=== PATIENT | female | born 1950 | race Caucasian/White ===

== ENCOUNTER → 2016-11-26 | Outpatient (CLI) | payer MEDICARE, OTHER ==
[~2016-11-26] VITALS: Ht 165.1 cm; Wt 59.9 kg
[~2016-11-26] MED LIST: COLA100C2 OR; CYCL10TA3 PO; DOCU10ELUD PO; EFFE150C PO; LR 1,000 ML IV SCH; PERC5TAB8 OR; PROPOFOL 200 MG/20 ML VIAL As Ordered ONE; SIMV40TA2 PO; TYLE325T5 PO; TYLENOL #3; VOLT75TA PR; [UNRECOGNIZED DRUG - REMARK] PO; ambien OR
[2016-11-26 09:40] VITALS: BP 132/71
--- NOTE | 2016-11-26 09:50 | ROOR ---
Patient Name: Reina Jerez Procedure Date: 11/26/2016 8:19 AM Date of : 1950 Age: 66 Room: [facility] Gender: Female Note Status: Finalized Procedure: Colonoscopy Indications: Screening for colorectal malignant neoplasm, This is the patient's first colonoscopy Providers: Kirt Abraham MD Referring MD: Elvia Arriaza MD Requesting Provider: Medicines: Monitored Anesthesia Care Complications: No immediate complications. Procedure: Pre-Anesthesia Assessment: - Prior to the procedure, a History and Physical was performed, and patient medications and allergies were reviewed. The patient is competent. The risks and benefits of the procedure and the sedation options and risks were discussed with the patient. All questions were answered and informed consent was obtained. Patient identification and proposed procedure were verified by the physician, the nurse and the anesthesiologist in the procedure room. Mental Status Examination: alert and oriented. Airway Examination: normal oropharyngeal airway and neck mobility. CV Examination: regular rate and rhythm. Prophylactic Antibiotics: The patient does not require prophylactic antibiotics. Prior Anticoagulants: The patient has taken no previous anticoagulant or antiplatelet agents. ASA Grade Assessment: II - A patient with mild systemic disease. After reviewing the risks and benefits, the patient was deemed in satisfactory condition to undergo the procedure. The anesthesia plan was to use monitored anesthesia care (MAC). Immediately prior to administration of medications, the patient was re-assessed for adequacy to receive sedatives. The heart rate, respiratory rate, oxygen saturations, blood pressure, adequacy of pulmonary ventilation, and response to care were monitored throughout the procedure. The physical status of the patient was re-assessed after the procedure. The was introduced through the anus and advanced to the cecum, identified by appendiceal orifice and ileocecal valve. The colonoscopy was technically difficult and complex due to significant looping. The patient tolerated the procedure well. The quality of the bowel preparation was excellent. Findings: The perianal and digital rectal examinations were normal. Multiple medium-mouthed diverticula were found in the sigmoid colon. A few medium-mouthed diverticula were found in the descending colon, in the transverse colon and in the ascending colon. Two sessile polyps were found in the cecum. The polyps were 4 to 10 mm in size. These polyps were removed with a hot snare. Resection and retrieval were complete. Two sessile polyps were found in the distal ascending colon. The polyps were 4 to 8 mm in size. Estimated blood loss: none. These polyps were removed with a hot snare. Resection and retrieval were complete. Three sessile polyps were found in the transverse colon. The polyps were 4 to 7 mm in size. These polyps were removed with a hot snare. Resection and retrieval were complete. Impression: - Diverticulosis in the sigmoid colon. - Diverticulosis in the descending colon, in the transverse colon and in the ascending colon. - Two 4 to 10 mm polyps in the cecum, removed with a hot snare. Resected and retrieved. - Two 4 to 8 mm polyps in the distal ascending colon, removed with a hot snare. Resected and retrieved. - Three 4 to 7 mm polyps in the transverse colon, removed with a hot snare. Resected and retrieved. Recommendation: - Await pathology results. - Telephone endoscopist for pathology results in 10 days. Kirt Abraham MD 11/26/2016 9:50:11 AM Number of Addenda: 0 Note Initiated On: 11/26/2016 8:19 AM Estimated Blood Loss: Estimated blood loss: none.
== END | disposition home or self-care (01) ==
LOC: M OPP 07:33
PROVIDERS: ATTEND Surgery
DX: Z12.11 Encounter for screening for malignant neoplasm of colon (principal); K57.30 Diverticulosis of large intestine without perforation or abscess without bleeding; D12.0 Benign neoplasm of cecum; D12.2 Benign neoplasm of ascending colon; D12.3 Benign neoplasm of transverse colon; E78.00 Pure hypercholesterolemia, unspecified; R12 Heartburn; M19.90 Unspecified osteoarthritis, unspecified site; L30.9 Dermatitis, unspecified; F41.9 Anxiety disorder, unspecified; F33.9 Major depressive disorder, recurrent, unspecified; Z97.2 Presence of dental prosthetic device (complete) (partial); F17.200 Nicotine dependence, unspecified, uncomplicated; F17.228 Nicotine dependence, chewing tobacco, with other nicotine-induced disorders; Z79.899 Other long term (current) drug therapy

== ENCOUNTER → 2017-05-27 | Outpatient (REF) | payer MEDICARE, OTHER ==
[~2017-05-27] MED LIST changes: -LR 1,000 ML IV SCH; -PROPOFOL 200 MG/20 ML VIAL As Ordered ONE
== END ==
LOC: M LAB REF 13:16
PROVIDERS: ATTEND Nurse Practitioner Family
DX: L08.9 Local infection of the skin and subcutaneous tissue, unspecified (principal)

== ENCOUNTER → 2017-08-06 | Outpatient (REF) | payer MEDICARE, OTHER | LOC: M LAB REF 15:40 | PROVIDERS: ATTEND Nurse Practitioner Family | DX: L08.9 Local infection of the skin and subcutaneous tissue, unspecified (principal) ==

== ENCOUNTER → 2017-10-06 | Outpatient (CLI) | payer MEDICARE, OTHER ==
[2017-10-06 09:47] LABS: BASO % 0.4 % (0.0-1.0); EOS # 0.1 10^3/uL (0.0-0.50); EOS % 0.9 % (0.0-3.0); LYMPH # 1.1 10^3/uL (1.5-4.5); LYMPH % 20.2 % (24.0-44.0); MEAN CORPUSCULAR HEMOGLOBIN 33.2 pg (27.0-33.0); MEAN CORPUSCULAR HGB CONC 33.8 g/dl (32.0-36.5); MEAN CORPUSCULAR VOLUME 98.2 fl (80.0-96.0); MONO # 0.4 10^3/uL (0.0-0.8); MONO % 6.4 % (0.0-5.0); NEUTROPHILS # 4.1 10^3/uL (1.8-7.7); NEUTROPHILS % 72.1 % (36.0-66.0); PLATELET COUNT, AUTOMATED 276 10^3/uL (150-450); RED CELL DISTRIBUTION WIDTH 13.2 % (11.5-14.5); WHITE BLOOD COUNT 5.7 10^3/uL (4.0-10.0)
[2017-10-06 10:24] LABS: ALBUMIN 3.8 GM/DL (3.2-5.2); ALBUMIN/GLOBULIN RATIO 1.41 (1.00-1.93); ALKALINE PHOSPHATASE 57 U/L (45-117); ALT/SGPT 24 U/L (12-78); ANION GAP 7 MEQ/L (8-16); AST/SGOT 13 U/L (7-37); BILIRUBIN,TOTAL 0.8 MG/DL (0.2-1.0); BLOOD UREA NITROGEN 19 MG/DL (7-18); CALCIUM LEVEL 8.5 MG/DL (8.8-10.2); CARBON DIOXIDE LEVEL 27 MEQ/L (21-32); CHLORIDE LEVEL 109 MEQ/L (98-107); CHOLESTEROL LEVEL 212 MG/DL (<200); CREATININE FOR GFR 0.71 MG/DL (0.55-1.02); GLOMERULAR FILTRATION RATE > 60.0 (>45); GLUCOSE, FASTING 102 MG/DL (80-110); POTASSIUM SERUM 4.3 MEQ/L (3.5-5.1); SODIUM LEVEL 143 MEQ/L (136-145); TOTAL PROTEIN 6.5 GM/DL (6.4-8.2); TRIGLYCERIDES LEVEL 140 MG/DL (<150)
== END ==
LOC: M LABDRAW1 08:31
PROVIDERS: ATTEND Family Medicine
DX: E78.2 Mixed hyperlipidemia (principal)

== ENCOUNTER → 2018-06-01 | Outpatient (REF) | payer MEDICARE, OTHER | LOC: M LAB REF 15:24 | DX: L08.9 Local infection of the skin and subcutaneous tissue, unspecified (principal) | CPT/HCPCS: 87186 ==

== ENCOUNTER → 2018-11-20 | Outpatient (REF) | payer MEDICARE, OTHER ==
[2018-11-20 12:16] LABS: BASO % 0.6 % (0.0-1.0); EOS # 0.1 10^3/uL (0.0-0.50); HEMATOCRIT 38.7 % (36.0-47.0); HEMOGLOBIN 12.7 g/dl (12.0-15.5); LYMPH # 0.9 10^3/uL (1.5-4.5); LYMPH % 17.3 % (24.0-44.0); MEAN CORPUSCULAR HEMOGLOBIN 33.1 pg (27.0-33.0); MEAN CORPUSCULAR HGB CONC 32.8 g/dl (32.0-36.5); MEAN CORPUSCULAR VOLUME 100.8 fl (80.0-96.0); MONO # 0.3 10^3/uL (0.0-0.8); MONO % 5.5 % (0.0-5.0); NEUTROPHILS % 74.2 % (36.0-66.0); PLATELET COUNT, AUTOMATED 289 10^3/uL (150-450); RED BLOOD COUNT 3.84 10^6/uL (4.00-5.40); WHITE BLOOD COUNT 5.4 10^3/uL (4.0-10.0)
[2018-11-20 12:25] LABS: ALBUMIN 3.6 GM/DL (3.2-5.2); ALT/SGPT 35 U/L (12-78); BILIRUBIN,TOTAL 0.7 MG/DL (0.2-1.0); BLOOD UREA NITROGEN 13 MG/DL (7-18); CALCIUM LEVEL 8.5 MG/DL (8.8-10.2); CARBON DIOXIDE LEVEL 24 MEQ/L (21-32); CHLORIDE LEVEL 109 MEQ/L (98-107); CHOLESTEROL LEVEL 214 MG/DL (<200); CHOLESTEROL RISK RATIO 2.404 (<5); CREATININE FOR GFR 0.74 MG/DL (0.55-1.30); GLOMERULAR FILTRATION RATE > 60.0 (>45); GLUCOSE, FASTING 101 MG/DL (70-100); HDL CHOLESTEROL 89 MG/DL (>40); LDL CHOLESTEROL 104 MG/DL (<100); NON-HDL-C 125 MG/DL; POTASSIUM SERUM 4.4 MEQ/L (3.5-5.1); SODIUM LEVEL 142 MEQ/L (136-145); TOTAL PROTEIN 6.4 GM/DL (6.4-8.2); TRIGLYCERIDES LEVEL 106 MG/DL (<150)
== END ==
LOC: M LABDRAW1 12:00
PROVIDERS: ATTEND Family Medicine
DX: Z00.00 Encounter for general adult medical examination without abnormal findings (principal)

== ENCOUNTER → 2019-12-09 | Outpatient (CLI) | payer MEDICARE, OTHER ==
[~2019-12-09] MED LIST changes: -DOCU10ELUD PO; +DOCU5LIQ PO
[2019-12-09 10:54] LABS: BASO % 0.4 % (0.0-1.0); EOS % 0.2 % (0.0-3.0); HEMATOCRIT 40.3 % (36.0-47.0); HEMOGLOBIN 12.9 g/dl (12.0-15.5); LYMPH # 0.9 10^3/uL (1.5-5.0); LYMPH % 17.6 % (24.0-44.0); MEAN CORPUSCULAR HEMOGLOBIN 32.7 pg (27.0-33.0); MONO # 0.4 10^3/uL (0.0-0.8); MONO % 7.2 % (0.0-5.0); NEUTROPHILS # 3.7 10^3/uL (1.5-8.5); NEUTROPHILS % 74.2 % (36.0-66.0); PLATELET COUNT, AUTOMATED 241 10^3/uL (150-450); RED BLOOD COUNT 3.95 10^6/uL (4.00-5.40)
[2019-12-09 11:27] LABS: ALBUMIN 4.1 GM/DL (3.2-5.2); ALT/SGPT 25 U/L (12-78); BILIRUBIN,TOTAL 0.8 MG/DL (0.2-1.0); BLOOD UREA NITROGEN 15 MG/DL (7-18); CALCIUM LEVEL 9.1 MG/DL (8.8-10.2); CARBON DIOXIDE LEVEL 29 MEQ/L (21-32); CHLORIDE LEVEL 111 MEQ/L (98-107); CHOLESTEROL LEVEL 215 MG/DL (<200); CHOLESTEROL RISK RATIO 2.087 (<5); CREATININE FOR GFR 0.75 MG/DL (0.55-1.30); GLOMERULAR FILTRATION RATE > 60.0 (>45); GLUCOSE, FASTING 102 MG/DL (70-100); HDL CHOLESTEROL 103 MG/DL (>40); LDL CHOLESTEROL 99 MG/DL (<100); NON-HDL-C 112 MG/DL; POTASSIUM SERUM 5.4 MEQ/L (3.5-5.1); SODIUM LEVEL 141 MEQ/L (136-145); TRIGLYCERIDES LEVEL 64 MG/DL (<150)
== END ==
LOC: M LAB 10:23
PROVIDERS: ATTEND Family Medicine
DX: E78.2 Mixed hyperlipidemia (principal)

== ENCOUNTER → 2019-12-15 | Outpatient (REF) | payer MEDICARE, OTHER ==
[2019-12-15 15:42] LABS: BLOOD UREA NITROGEN 15 MG/DL (7-18); CALCIUM LEVEL 9.6 MG/DL (8.8-10.2); CARBON DIOXIDE LEVEL 28 MEQ/L (21-32); CHLORIDE LEVEL 106 MEQ/L (98-107); CREATININE FOR GFR 0.81 MG/DL (0.55-1.30); GLOMERULAR FILTRATION RATE > 60.0 (>45); GLUCOSE, FASTING 99 MG/DL (70-100); SODIUM LEVEL 140 MEQ/L (136-145)
== END ==
LOC: M LABDRAW1 13:01
PROVIDERS: ATTEND Family Medicine
DX: E87.5 Hyperkalemia (principal)

== ENCOUNTER → 2020-01-03 | Outpatient (REF) | payer MEDICARE, OTHER | LOC: M LAB REF 17:58 | PROVIDERS: ATTEND Physician Assistant Medical | DX: J02.0 Streptococcal pharyngitis (principal) ==

== ENCOUNTER → 2022-02-23 | Outpatient (REF) | payer MEDICARE, OTHER ==
[~2022-02-23] MED LIST changes: +ACET-907 PO; +ADVITAB PO; +AMBI10TA PO; +EFFE75CA2 PO; +SIMV20TA22 PO
== END ==
LOC: M LAB REF 12:50
PROVIDERS: ATTEND Physician Assistant Medical
DX: R05.9 Cough, unspecified (principal); R53.83 Other fatigue; R09.81 Nasal congestion

== ENCOUNTER 2022-12-31 08:19 | Inpatient (IN) | payer MEDICARE, OTHER ==
[~2022-12-31] VITALS: Ht 167.6 cm; Wt 67.5 kg
[2022-12-31] MEDS ORDERED: ISOVUE-370 76% 100ML VIAL As Ordered ONE ×2 (08:56→09:14)
[2022-12-31] MEDS ORDERED: DUPI300P SC (08:58)
[2022-12-31 09:07] LABS: BASO % 0.2 % (0.0-1.0); EOS % 0.2 % (0.0-3.0); HEMATOCRIT 41.3 % (36.0-47.0); HEMOGLOBIN 13.7 g/dl (12.0-15.5); LYMPH # 0.9 10^3/uL (1.5-5.0); LYMPH % 7.1 % (24.0-44.0); MEAN CORPUSCULAR HEMOGLOBIN 32.8 pg (27.0-33.0); MEAN CORPUSCULAR HGB CONC 33.2 g/dl (32.0-36.5); MEAN CORPUSCULAR VOLUME 98.8 fl (80.0-96.0); MONO # 0.5 10^3/uL (0.0-0.8); MONO % 3.7 % (2.0-8.0); NEUTROPHILS # 11.6 10^3/uL (1.5-8.5); NEUTROPHILS % 88.4 % (36.0-66.0); PLATELET COUNT, AUTOMATED 270 10^3/uL (150-450); RED BLOOD COUNT 4.18 10^6/uL (4.00-5.40); WHITE BLOOD COUNT 13.1 10^3/uL (4.0-10.0)
[2022-12-31 09:41] LABS: ALBUMIN 4.2 G/DL (3.2-5.2); BILIRUBIN,DIRECT 0.3 MG/DL (<0.4); BILIRUBIN,TOTAL 1.4 MG/DL (0.3-1.2)
[2022-12-31] MEDS ORDERED: diazePAM 10MG/2ML SYRINGE IV ONE (10:10)
[2022-12-31] MEDS ORDERED: ONDANSETRON 4MG 2ML VIAL IV ONE (10:10)
[2022-12-31] MEDS ORDERED: IBUP200T46 PO (13:44)
[2022-12-31] MEDS ORDERED: CETI-24 PO (13:44)
[2022-12-31] MEDS ORDERED: TUMS500C PO (13:44)
[2022-12-31] MEDS ORDERED: FLON1SPR NARES (13:44)
[2022-12-31] MEDS ORDERED: VENL37.598 PO (13:44)
[2022-12-31] MEDS ORDERED: VENL150C43 PO (13:44)
[2022-12-31] MEDS ORDERED: ATOR40TA75 PO (13:44)
[2022-12-31] MEDS ORDERED: HOME MED LIST COMPLETE! XX SCH (13:45)
[2022-12-31] MEDS: ASPIRIN 81MG CHEW TABLET PO ONE ×2 (15:18→17:49)
[2022-12-31] MEDS: VENLAFAXINE **XR** 75MG CAPSULE PO SCH (15:18)
[2022-12-31] MEDS: VENLAFAXINE **XR** 37.5 MG CAPSULE PO SCH (15:19)
[2022-12-31] MEDS: ONDANSETRON 4MG 2ML VIAL IV PRN ×2 (15:38→21:57)
[2022-12-31 15:40] LABS: INR 0.94; PROTHROMBIN TIME 12.8 SECONDS (12.5-14.5)
[2022-12-31 15:41] LABS: PARTIAL THROMBOPLASTIN TIME 23.9 SECONDS (24.8-34.2)
[2022-12-31 15:59] LABS: C REACTIVE PROTEIN QUANTITATIV 0.5 MG/DL (<1.0)
[2022-12-31] MEDS: LABETALOL 100MG/20ML VIAL IV SCH ×2 (16:00→21:56)
[2022-12-31 16:12] LABS: CHOLESTEROL RISK RATIO 2.35 (<5); FREE THYROXINE INDEX 2.4 % (1.3-4.8); HDL CHOLESTEROL 93.3 MG/DL (>40); LDL CHOLESTEROL 102.1 MG/DL (<100); T UPTAKE 34.6 % (22.5-37.0); THYROID STIMULATING HORMONE 0.739 uIU/ML (0.55-4.78); THYROXINE (T4) 6.8 UG/DL (4.5-10.9)
[2022-12-31 16:42] VITALS: BP 176/70
[2022-12-31] MEDS ORDERED: FLUTICASONE PROP 0.05% NASAL SPRAY 16 GM (FLONASE) NARES PRN (18:00)
[2022-12-31 18:49] LABS: CK-MB VALUE MASS 2.4 NG/ML (<3.6); MB/CK RELATIVE INDEX 1.54 (< OR =4)
[2022-12-31 18:51] LABS: BLOOD UREA NITROGEN 11 MG/DL (9-23); CALCIUM LEVEL 10.4 MG/DL (8.3-10.6); CARBON DIOXIDE LEVEL 22 MMOL/L (20-31); CHLORIDE LEVEL 106 MMOL/L (98-107); GLUCOSE, FASTING 145 MG/DL (74-106); POTASSIUM SERUM 4.2 MMOL/L (3.5-5.1); SODIUM LEVEL 139 MMOL/L (136-145)
[2022-12-31 19:49] LABS: CREATININE FOR GFR 0.69 MG/DL (0.55-1.30); GLOMERULAR FILTRATION RATE > 60.0 (>39)
[2022-12-31 19:54] LABS: CK-MB VALUE MASS 2.4 NG/ML (<3.6)
[2022-12-31 19:55] LABS: MB/CK RELATIVE INDEX 1.72 (< OR =4)
[2022-12-31 20:13] VITALS: BP 157/85
[2022-12-31] MEDS: CETIRIZINE (ZyrTEC) 10 MG TAB PO SCH (21:00)
[2022-12-31] MEDS: zolPIDEM TARTRATE 5 MG TAB PO SCH (21:00)
[2022-12-31] MEDS: ATORVASTATIN 20 MG TAB PO SCH (21:00)
[2022-12-31 23:33] VITALS: BP 164/83
[2023-01-01] MEDS: ATORVASTATIN 20 MG TAB PO SCH ×2 (00:30→21:03)
[2023-01-01] MEDS: zolPIDEM TARTRATE 5 MG TAB PO SCH ×2 (00:30→21:04)
[2023-01-01] MEDS: CALCIUM CARBONATE 500 MG CHEW U/D PO PRN ×2 (00:51→21:03)
[2023-01-01] MEDS: LABETALOL 100MG/20ML VIAL IV SCH ×4 (04:00→21:04)
[2023-01-01] MEDS: ONDANSETRON 4MG 2ML VIAL IV PRN (04:19)
[2023-01-01 04:20] VITALS: BP 159/76
[2023-01-01 04:54] LABS: BASO % 0.2 % (0.0-1.0); HEMATOCRIT 40.8 % (36.0-47.0); HEMOGLOBIN 13.6 g/dl (12.0-15.5); LYMPH # 1.3 10^3/uL (1.5-5.0); LYMPH % 11.4 % (24.0-44.0); MEAN CORPUSCULAR HEMOGLOBIN 32.9 pg (27.0-33.0); MEAN CORPUSCULAR HGB CONC 33.3 g/dl (32.0-36.5); MEAN CORPUSCULAR VOLUME 98.8 fl (80.0-96.0); MONO # 0.8 10^3/uL (0.0-0.8); NEUTROPHILS # 9.4 10^3/uL (1.5-8.5); NEUTROPHILS % 81.1 % (36.0-66.0); PLATELET COUNT, AUTOMATED 338 10^3/uL (150-450); RED BLOOD COUNT 4.13 10^6/uL (4.00-5.40); WHITE BLOOD COUNT 11.6 10^3/uL (4.0-10.0)
[2023-01-01 05:25] LABS: BLOOD UREA NITROGEN 15 MG/DL (9-23); CALCIUM LEVEL 10.4 MG/DL (8.3-10.6); CARBON DIOXIDE LEVEL 23 MMOL/L (20-31); CHLORIDE LEVEL 106 MMOL/L (98-107); CREATININE FOR GFR 0.78 MG/DL (0.55-1.30); GLOMERULAR FILTRATION RATE > 60.0 (>39); GLUCOSE, FASTING 109 MG/DL (74-106); POTASSIUM SERUM 3.7 MMOL/L (3.5-5.1); SODIUM LEVEL 141 MMOL/L (136-145)
[2023-01-01] MEDS ORDERED: PROMETHAZINE 25MG/ML 1ML VIAL IV ONE (06:55)
[2023-01-01 07:34] VITALS: BP 148/74
[2023-01-01] MEDS ORDERED: MECLIZINE 12.5 MG TAB PO PRN (08:40)
[2023-01-01] MEDS: ENOXAPARIN 40MG/0.4ML SYRINGE (J1650 PER 10MG) SC SCH (09:05)
[2023-01-01] MEDS: PANTOPRAZOLE 40MG VIAL IV SCH (09:05)
[2023-01-01] MEDS: ASPIRIN 81MG CHEW TABLET PO SCH (09:06)
[2023-01-01] MEDS: VENLAFAXINE **XR** 75MG CAPSULE PO SCH (09:07)
[2023-01-01] MEDS: VENLAFAXINE **XR** 37.5 MG CAPSULE PO SCH (09:07)
[2023-01-01 10:17] VITALS: BP 146/72
[2023-01-01 11:28] VITALS: BP 142/77
[2023-01-01 16:09] VITALS: BP 140/73
[2023-01-01 20:48] VITALS: BP 136/71
[2023-01-01] MEDS: CETIRIZINE (ZyrTEC) 10 MG TAB PO SCH (21:00)
[2023-01-02 00:11] VITALS: BP 132/66
[2023-01-02] MEDS: LABETALOL 100MG/20ML VIAL IV SCH ×3 (04:00→16:00)
[2023-01-02 04:20] VITALS: BP 134/76
[2023-01-02 04:56] VITALS: BP 127/71
[2023-01-02 05:06] LABS: BASO % 0.2 % (0.0-1.0); EOS % 0.3 % (0.0-3.0); HEMATOCRIT 35.4 % (36.0-47.0); HEMOGLOBIN 11.8 g/dl (12.0-15.5); LYMPH # 1.6 10^3/uL (1.5-5.0); LYMPH % 17.2 % (24.0-44.0); MEAN CORPUSCULAR HEMOGLOBIN 33.5 pg (27.0-33.0); MEAN CORPUSCULAR HGB CONC 33.3 g/dl (32.0-36.5); MEAN CORPUSCULAR VOLUME 100.6 fl (80.0-96.0); MONO # 0.6 10^3/uL (0.0-0.8); MONO % 6.9 % (2.0-8.0); NEUTROPHILS # 6.9 10^3/uL (1.5-8.5); NEUTROPHILS % 75.2 % (36.0-66.0); PLATELET COUNT, AUTOMATED 263 10^3/uL (150-450); RED BLOOD COUNT 3.52 10^6/uL (4.00-5.40); WHITE BLOOD COUNT 9.2 10^3/uL (4.0-10.0)
[2023-01-02 05:29] LABS: BLOOD UREA NITROGEN 19 MG/DL (9-23); CALCIUM LEVEL 9.6 MG/DL (8.3-10.6); CARBON DIOXIDE LEVEL 26 MMOL/L (20-31); CHLORIDE LEVEL 109 MMOL/L (98-107); CREATININE FOR GFR 0.71 MG/DL (0.55-1.30); GLOMERULAR FILTRATION RATE > 60.0 (>39); GLUCOSE, FASTING 104 MG/DL (74-106); POTASSIUM SERUM 3.9 MMOL/L (3.5-5.1); SODIUM LEVEL 141 MMOL/L (136-145)
[2023-01-02] MEDS ORDERED: SENOKOT S TAB PO PRN (07:45)
[2023-01-02] MEDS ORDERED: MOM 30ML SUSPENSION UDC PO ONE (07:50)
[2023-01-02 08:17] VITALS: BP 141/74
[2023-01-02] MEDS ORDERED: MIRALAX *UNIT DOSE* 17GM PACKET PO SCH (09:00)
[2023-01-02] MEDS: PANTOPRAZOLE 40MG VIAL IV SCH (09:18)
[2023-01-02] MEDS: ASPIRIN 81MG CHEW TABLET PO SCH (09:19)
[2023-01-02] MEDS: VENLAFAXINE **XR** 37.5 MG CAPSULE PO SCH (09:19)
[2023-01-02] MEDS: ENOXAPARIN 40MG/0.4ML SYRINGE (J1650 PER 10MG) SC SCH (09:19)
[2023-01-02] MEDS: VENLAFAXINE **XR** 75MG CAPSULE PO SCH (09:20)
[2023-01-02] MEDS ORDERED: ISOVUE-370 76% 100ML VIAL As Ordered ONE (10:19)
[2023-01-02] MEDS ORDERED: MIRA1POW3 PO (10:33)
[2023-01-02] MEDS ORDERED: ASPI81CH8 PO (10:33)
[2023-01-02] MEDS ORDERED: SENN-52 PO (10:33)
[2023-01-02] MEDS ORDERED: OMEP40CA4 PO (10:33)
[2023-01-02] MEDS ORDERED: ATOR1TAB21 PO (10:33)
[2023-01-02] MEDS ORDERED: MECL-136 PO (10:33)
[2023-01-02 11:57] VITALS: BP 141/78
[2023-01-02 16:00] VITALS: BP 132/72
== END 2023-01-02 20:51 | disposition other institution (70) | DRG 66 ==
LOC: EDBD 08:19 → M ED 08:19 → M ED INP 14:43 → M PCU 16:40
PROVIDERS: ADMIT Internal Medicine; ATTEND Internal Medicine
PROC: B246ZZZ Ultrasonography of Right and Left Heart (ICD-10-PCS; principal; 2022-12-31)
DX: I63.9 Cerebral infarction, unspecified (principal); E78.5 Hyperlipidemia, unspecified; M51.36 Other intervertebral disc degeneration, lumbar region; Z85.828 Personal history of other malignant neoplasm of skin; F41.9 Anxiety disorder, unspecified; R20.0 Anesthesia of skin; R11.0 Nausea; F17.210 Nicotine dependence, cigarettes, uncomplicated; I67.1 Cerebral aneurysm, nonruptured; I16.0 Hypertensive urgency; G47.00 Insomnia, unspecified; J30.9 Allergic rhinitis, unspecified; Z20.822 Contact with and (suspected) exposure to COVID-19; Z79.899 Other long term (current) drug therapy; Z91.048 Other nonmedicinal substance allergy status

== ENCOUNTER 2023-01-02 11:29 | Inpatient (IN) | payer MEDICARE, OTHER ==
[~2023-01-02] VITALS: Ht 167.6 cm; Wt 68.5 kg
[~2023-01-02 11:29] MED LIST changes: +ASPI81CH8 PO; +ATOR1TAB21 PO; +ATOR40TA75 PO; +CETI-24 PO; +DUPI300P SC; +FLON1SPR NARES; +IBUP200T46 PO; +MECL-136 PO; +MIRA1POW3 PO; +OMEP40CA4 PO; +SENN-52 PO; +TUMS500C PO; +VENL150C43 PO; +VENL37.598 PO
[2023-01-02] MEDS ORDERED: GLUCOSE 4GM CHEW TABLET PO PRN (16:15)
[2023-01-02] MEDS ORDERED: ONDANSETRON 4MG TAB PO PRN (16:15)
[2023-01-02] MEDS ORDERED: ACETAMINOPHEN TAB 650MG DOSE (2X325MG) PO PRN (16:15)
[2023-01-02] MEDS ORDERED: DEXTROSE 50% 50ML SYRINGE IV PRN (16:15)
[2023-01-02] MEDS ORDERED: BISACODYL 10MG SUPP PR PRN (16:15)
[2023-01-02] MEDS ORDERED: GLUCAGON INJ 1MG VIAL SC PRN (16:15)
[2023-01-02] MEDS ORDERED: MECLIZINE 12.5 MG TAB PO PRN (16:15)
[2023-01-02] MEDS ORDERED: INSULIN LISPRO (NovoLOG) PER UNIT SC SCH ×2 (17:30→21:00)
[2023-01-02] MEDS ORDERED: HOME MED LIST COMPLETE! XX SCH (19:35)
[2023-01-02 20:00] VITALS: BP 137/75
[2023-01-02] MEDS: REMEDY PHYTOPLEX Z-GUARD PASTE 113GM TUBE (FROM STOREROOM PRODUCT) TOP SCH (21:00)
[2023-01-02] MEDS: ATORVASTATIN 20 MG TAB PO SCH (21:40)
[2023-01-02] MEDS: zolPIDEM TARTRATE 5 MG TAB PO SCH (21:40)
[2023-01-02] MEDS: CETIRIZINE (ZyrTEC) 10 MG TAB PO SCH (21:40)
[2023-01-02] MEDS: SENNA 8.6 MG TAB (SENOKOT) PO SCH (21:40)
[2023-01-02] MEDS: DOCUSATE SODIUM 100MG CAPSULE PO SCH (21:40)
[2023-01-03 05:42] VITALS: BP 134/63
[2023-01-03 07:57] LABS: ALBUMIN 3.5 G/DL (3.2-5.2); ALKALINE PHOSPHATASE 68 U/L (46-116); ALT/SGPT 25 U/L (7.0-40); AST/SGOT 37 U/L (<34); BILIRUBIN,TOTAL 1.1 MG/DL (0.3-1.2); BLOOD UREA NITROGEN 14 MG/DL (9-23); CALCIUM LEVEL 8.7 MG/DL (8.3-10.6); CARBON DIOXIDE LEVEL 28 MMOL/L (20-31); CHLORIDE LEVEL 108 MMOL/L (98-107); CREATININE FOR GFR 0.64 MG/DL (0.55-1.30); GLOMERULAR FILTRATION RATE > 60.0 (>39); GLUCOSE, FASTING 103 MG/DL (74-106); POTASSIUM SERUM 3.9 MMOL/L (3.5-5.1); SODIUM LEVEL 140 MMOL/L (136-145)
[2023-01-03] MEDS: REMEDY PHYTOPLEX Z-GUARD PASTE 113GM TUBE (FROM STOREROOM PRODUCT) TOP SCH ×3 (09:00→20:53)
[2023-01-03] MEDS: VENLAFAXINE **XR** 37.5 MG CAPSULE PO SCH (10:10)
[2023-01-03] MEDS: ASPIRIN 81MG CHEW TABLET PO SCH (10:10)
[2023-01-03] MEDS: VENLAFAXINE **XR** 75MG CAPSULE PO SCH (10:11)
[2023-01-03] MEDS: DOCUSATE SODIUM 100MG CAPSULE PO SCH ×2 (10:11→20:48)
[2023-01-03] MEDS: OMEPRAZOLE 20MG CAP PO SCH (10:11)
[2023-01-03] MEDS: ENOXAPARIN 40MG/0.4ML SYRINGE (J1650 PER 10MG) SC SCH (10:11)
[2023-01-03] MEDS ORDERED: MOM 30ML SUSPENSION UDC PO PRN (11:20)
[2023-01-03] MEDS: CALCIUM CARBONATE 500 MG CHEW U/D PO PRN (12:18)
[2023-01-03] MEDS: MIRALAX *UNIT DOSE* 17GM PACKET PO SCH ×2 (12:19→20:49)
[2023-01-03 14:00] VITALS: BP 145/72
[2023-01-03] MEDS ORDERED: POLYVINYL ALCOHOL OPHTH SOLN 15ML (LIQUITEARS) OS PRN (14:35)
[2023-01-03] MEDS: THIAMINE 100 MG TAB PO SCH (14:54)
[2023-01-03] MEDS: FOLIC ACID 1MG TAB PO SCH (14:54)
[2023-01-03] MEDS: COMBIVENT RESPIMAT 100-20MCG INHALER 4GM INH SCH ×2 (14:57→19:59)
[2023-01-03] MEDS: SODIUM CHLORIDE NASAL 0.65% SPRAY BTL (OCEAN) SCH ×2 (15:20→20:52)
[2023-01-03] MEDS: guaiFENesin 200 MG TAB PO SCH ×2 (15:20→20:48)
[2023-01-03] MEDS: LACRILUBE (AKWA TEARS) OPHTH OINT 3.5GM OS SCH ×2 (15:20→20:53)
[2023-01-03] MEDS: POLYVINYL ALCOHOL OPHTH SOLN 15ML (LIQUITEARS) OS SCH ×2 (15:21→17:30)
[2023-01-03] MEDS ORDERED: SODIUM CHLORIDE NASAL 0.65% SPRAY BTL (OCEAN) SCH (16:00)
[2023-01-03 20:00] VITALS: BP 136/71
[2023-01-03] MEDS ORDERED: FLEET ENEMA PR ONE (20:00)
[2023-01-03] MEDS: zolPIDEM TARTRATE 5 MG TAB PO SCH (20:48)
[2023-01-03] MEDS: SENNA 8.6 MG TAB (SENOKOT) PO SCH (20:48)
[2023-01-03] MEDS: ATORVASTATIN 20 MG TAB PO SCH (20:49)
[2023-01-03] MEDS: TAMSULOSIN 0.4 MG CAP PO SCH (20:49)
[2023-01-03] MEDS: CETIRIZINE (ZyrTEC) 10 MG TAB PO SCH (20:49)
[2023-01-03] MEDS: FLUTICASONE PROP 0.05% NASAL SPRAY 16 GM (FLONASE) NARES SCH (20:52)
[2023-01-04 06:00] VITALS: BP 147/69
[2023-01-04 06:32] LABS: BASO % 0.3 % (0.0-1.0); EOS # 0.1 10^3/uL (0.0-0.5); EOS % 0.9 % (0.0-3.0); HEMOGLOBIN 11.3 g/dl (12.0-15.5); LYMPH # 0.9 10^3/uL (1.5-5.0); LYMPH % 15.5 % (24.0-44.0); MEAN CORPUSCULAR HEMOGLOBIN 33.1 pg (27.0-33.0); MEAN CORPUSCULAR HGB CONC 33.2 g/dl (32.0-36.5); MEAN CORPUSCULAR VOLUME 99.7 fl (80.0-96.0); MONO # 0.4 10^3/uL (0.0-0.8); MONO % 7.4 % (2.0-8.0); NEUTROPHILS # 4.4 10^3/uL (1.5-8.5); NEUTROPHILS % 75.6 % (36.0-66.0); PLATELET COUNT, AUTOMATED 240 10^3/uL (150-450); RED BLOOD COUNT 3.41 10^6/uL (4.00-5.40); WHITE BLOOD COUNT 5.8 10^3/uL (4.0-10.0)
[2023-01-04] MEDS: POLYVINYL ALCOHOL OPHTH SOLN 15ML (LIQUITEARS) OS SCH ×5 (06:40→18:31)
[2023-01-04] MEDS: COMBIVENT RESPIMAT 100-20MCG INHALER 4GM INH SCH ×3 (07:43→20:00)
[2023-01-04] MEDS: REMEDY PHYTOPLEX Z-GUARD PASTE 113GM TUBE (FROM STOREROOM PRODUCT) TOP SCH ×3 (09:00→20:31)
[2023-01-04] MEDS: ENOXAPARIN 40MG/0.4ML SYRINGE (J1650 PER 10MG) SC SCH (10:01)
[2023-01-04] MEDS: MIRALAX *UNIT DOSE* 17GM PACKET PO SCH ×2 (10:01→20:29)
[2023-01-04] MEDS: ASPIRIN 81MG CHEW TABLET PO SCH (10:02)
[2023-01-04] MEDS: guaiFENesin 200 MG TAB PO SCH ×3 (10:02→20:29)
[2023-01-04] MEDS: VENLAFAXINE **XR** 75MG CAPSULE PO SCH (10:02)
[2023-01-04] MEDS: FOLIC ACID 1MG TAB PO SCH (10:03)
[2023-01-04] MEDS: THIAMINE 100 MG TAB PO SCH (10:03)
[2023-01-04] MEDS: DOCUSATE SODIUM 100MG CAPSULE PO SCH ×2 (10:03→20:29)
[2023-01-04] MEDS: OMEPRAZOLE 20MG CAP PO SCH (10:03)
[2023-01-04] MEDS: VENLAFAXINE **XR** 37.5 MG CAPSULE PO SCH (10:04)
[2023-01-04] MEDS: FLUTICASONE PROP 0.05% NASAL SPRAY 16 GM (FLONASE) NARES SCH ×2 (10:07→20:30)
[2023-01-04] MEDS: LACRILUBE (AKWA TEARS) OPHTH OINT 3.5GM OS SCH ×3 (10:07→20:32)
[2023-01-04] MEDS: SODIUM CHLORIDE NASAL 0.65% SPRAY BTL (OCEAN) SCH ×3 (10:08→20:30)
[2023-01-04 14:00] VITALS: BP 130/76
[2023-01-04 19:59] VITALS: BP 122/74
[2023-01-04] MEDS: SENNA 8.6 MG TAB (SENOKOT) PO SCH (20:29)
[2023-01-04] MEDS: zolPIDEM TARTRATE 5 MG TAB PO SCH (20:30)
[2023-01-04] MEDS: CETIRIZINE (ZyrTEC) 10 MG TAB PO SCH (20:30)
[2023-01-04] MEDS: TAMSULOSIN 0.4 MG CAP PO SCH (20:30)
[2023-01-04] MEDS: ATORVASTATIN 20 MG TAB PO SCH (20:31)
[2023-01-05 06:00] VITALS: BP 125/77
[2023-01-05] MEDS: POLYVINYL ALCOHOL OPHTH SOLN 15ML (LIQUITEARS) OS SCH ×5 (06:04→18:35)
[2023-01-05] MEDS: COMBIVENT RESPIMAT 100-20MCG INHALER 4GM INH SCH ×3 (07:29→20:42)
[2023-01-05] MEDS: MIRALAX *UNIT DOSE* 17GM PACKET PO SCH ×2 (07:57→20:08)
[2023-01-05] MEDS: ENOXAPARIN 40MG/0.4ML SYRINGE (J1650 PER 10MG) SC SCH ×2 (07:57→08:16)
[2023-01-05] MEDS: guaiFENesin 200 MG TAB PO SCH ×3 (07:58→20:07)
[2023-01-05] MEDS: ASPIRIN 81MG CHEW TABLET PO SCH (07:58)
[2023-01-05] MEDS: FOLIC ACID 1MG TAB PO SCH (07:58)
[2023-01-05] MEDS: DOCUSATE SODIUM 100MG CAPSULE PO SCH ×2 (07:59→20:11)
[2023-01-05] MEDS: VENLAFAXINE **XR** 75MG CAPSULE PO SCH (07:59)
[2023-01-05] MEDS: VENLAFAXINE **XR** 37.5 MG CAPSULE PO SCH (07:59)
[2023-01-05] MEDS: OMEPRAZOLE 20MG CAP PO SCH (07:59)
[2023-01-05] MEDS: THIAMINE 100 MG TAB PO SCH (08:00)
[2023-01-05] MEDS: FLUTICASONE PROP 0.05% NASAL SPRAY 16 GM (FLONASE) NARES SCH ×2 (08:00→20:09)
[2023-01-05] MEDS: SODIUM CHLORIDE NASAL 0.65% SPRAY BTL (OCEAN) SCH ×3 (08:00→20:09)
[2023-01-05] MEDS: REMEDY PHYTOPLEX Z-GUARD PASTE 113GM TUBE (FROM STOREROOM PRODUCT) TOP SCH ×3 (08:01→20:10)
[2023-01-05] MEDS: LACRILUBE (AKWA TEARS) OPHTH OINT 3.5GM OS SCH ×3 (08:01→20:10)
[2023-01-05 14:00] VITALS: BP 128/75
[2023-01-05] MEDS: CALCIUM CARBONATE 500 MG CHEW U/D PO PRN (16:01)
[2023-01-05 20:05] VITALS: BP 130/78
[2023-01-05] MEDS: CETIRIZINE (ZyrTEC) 10 MG TAB PO SCH (20:07)
[2023-01-05] MEDS: TAMSULOSIN 0.4 MG CAP PO SCH (20:07)
[2023-01-05] MEDS: ATORVASTATIN 20 MG TAB PO SCH (20:07)
[2023-01-05] MEDS: zolPIDEM TARTRATE 5 MG TAB PO SCH (20:07)
[2023-01-05] MEDS: SENNA 8.6 MG TAB (SENOKOT) PO SCH (20:09)
[2023-01-06 05:48] VITALS: BP 159/74
[2023-01-06] MEDS: POLYVINYL ALCOHOL OPHTH SOLN 15ML (LIQUITEARS) OS SCH ×5 (06:36→18:57)
[2023-01-06 07:25] LABS: BASO % 0.5 % (0.0-1.0); EOS # 0.1 10^3/uL (0.0-0.5); EOS % 1.4 % (0.0-3.0); HEMATOCRIT 36.2 % (36.0-47.0); HEMOGLOBIN 11.9 g/dl (12.0-15.5); LYMPH % 16.3 % (24.0-44.0); MEAN CORPUSCULAR HEMOGLOBIN 33.1 pg (27.0-33.0); MEAN CORPUSCULAR HGB CONC 32.9 g/dl (32.0-36.5); MEAN CORPUSCULAR VOLUME 100.6 fl (80.0-96.0); MONO # 0.5 10^3/uL (0.0-0.8); MONO % 7.9 % (2.0-8.0); NEUTROPHILS # 4.7 10^3/uL (1.5-8.5); NEUTROPHILS % 73.6 % (36.0-66.0); PLATELET COUNT, AUTOMATED 299 10^3/uL (150-450); WHITE BLOOD COUNT 6.3 10^3/uL (4.0-10.0)
[2023-01-06 07:58] LABS: BLOOD UREA NITROGEN 7 MG/DL (9-23); CALCIUM LEVEL 8.7 MG/DL (8.3-10.6); CARBON DIOXIDE LEVEL 26 MMOL/L (20-31); CHLORIDE LEVEL 108 MMOL/L (98-107); CREATININE FOR GFR 0.64 MG/DL (0.55-1.30); GLOMERULAR FILTRATION RATE > 60.0 (>39); GLUCOSE, FASTING 116 MG/DL (74-106); SODIUM LEVEL 142 MMOL/L (136-145)
[2023-01-06] MEDS: ASPIRIN 81MG CHEW TABLET PO SCH (08:13)
[2023-01-06] MEDS: DOCUSATE SODIUM 100MG CAPSULE PO SCH ×2 (08:14→20:34)
[2023-01-06] MEDS: FOLIC ACID 1MG TAB PO SCH (08:14)
[2023-01-06] MEDS: OMEPRAZOLE 20MG CAP PO SCH (08:14)
[2023-01-06] MEDS: guaiFENesin 200 MG TAB PO SCH ×3 (08:14→20:34)
[2023-01-06] MEDS: VENLAFAXINE **XR** 37.5 MG CAPSULE PO SCH (08:14)
[2023-01-06] MEDS: THIAMINE 100 MG TAB PO SCH (08:14)
[2023-01-06] MEDS: VENLAFAXINE **XR** 75MG CAPSULE PO SCH (08:14)
[2023-01-06] MEDS: ENOXAPARIN 40MG/0.4ML SYRINGE (J1650 PER 10MG) SC SCH (08:15)
[2023-01-06] MEDS: MIRALAX *UNIT DOSE* 17GM PACKET PO SCH ×2 (08:15→20:35)
[2023-01-06] MEDS: FLUTICASONE PROP 0.05% NASAL SPRAY 16 GM (FLONASE) NARES SCH ×2 (08:15→20:35)
[2023-01-06] MEDS: SODIUM CHLORIDE NASAL 0.65% SPRAY BTL (OCEAN) SCH ×3 (08:16→20:36)
[2023-01-06] MEDS: LACRILUBE (AKWA TEARS) OPHTH OINT 3.5GM OS SCH ×3 (08:16→20:36)
[2023-01-06] MEDS: REMEDY PHYTOPLEX Z-GUARD PASTE 113GM TUBE (FROM STOREROOM PRODUCT) TOP SCH ×3 (08:16→20:37)
[2023-01-06] MEDS: COMBIVENT RESPIMAT 100-20MCG INHALER 4GM INH SCH ×3 (08:41→19:39)
[2023-01-06] MEDS: MECLIZINE 12.5 MG TAB PO SCH ×3 (12:03→20:34)
[2023-01-06] MEDS: TAMSULOSIN 0.4 MG CAP PO SCH ×2 (12:03→20:34)
[2023-01-06 14:00] VITALS: BP 114/61
[2023-01-06 19:37] VITALS: BP 142/67
[2023-01-06] MEDS: zolPIDEM TARTRATE 5 MG TAB PO SCH (20:34)
[2023-01-06] MEDS: SENNA 8.6 MG TAB (SENOKOT) PO SCH (20:34)
[2023-01-06] MEDS: CETIRIZINE (ZyrTEC) 10 MG TAB PO SCH (20:34)
[2023-01-06] MEDS: ATORVASTATIN 20 MG TAB PO SCH (20:35)
[2023-01-07 05:52] VITALS: BP 140/70
[2023-01-07] MEDS: POLYVINYL ALCOHOL OPHTH SOLN 15ML (LIQUITEARS) OS SCH ×5 (06:32→19:00)
[2023-01-07] MEDS: COMBIVENT RESPIMAT 100-20MCG INHALER 4GM INH SCH ×3 (07:07→20:05)
[2023-01-07] MEDS: TAMSULOSIN 0.4 MG CAP PO SCH ×2 (08:25→20:07)
[2023-01-07] MEDS: OMEPRAZOLE 20MG CAP PO SCH (08:25)
[2023-01-07] MEDS: FOLIC ACID 1MG TAB PO SCH (08:25)
[2023-01-07] MEDS: VENLAFAXINE **XR** 37.5 MG CAPSULE PO SCH (08:25)
[2023-01-07] MEDS: VENLAFAXINE **XR** 75MG CAPSULE PO SCH (08:25)
[2023-01-07] MEDS: DOCUSATE SODIUM 100MG CAPSULE PO SCH ×2 (08:25→20:07)
[2023-01-07] MEDS: MECLIZINE 12.5 MG TAB PO SCH ×3 (08:26→20:07)
[2023-01-07] MEDS: ASPIRIN 81MG CHEW TABLET PO SCH (08:26)
[2023-01-07] MEDS: THIAMINE 100 MG TAB PO SCH (08:26)
[2023-01-07] MEDS: MIRALAX *UNIT DOSE* 17GM PACKET PO SCH ×2 (08:26→20:08)
[2023-01-07] MEDS: guaiFENesin 200 MG TAB PO SCH ×3 (08:26→20:08)
[2023-01-07] MEDS: FLUTICASONE PROP 0.05% NASAL SPRAY 16 GM (FLONASE) NARES SCH ×2 (08:27→20:08)
[2023-01-07] MEDS: LACRILUBE (AKWA TEARS) OPHTH OINT 3.5GM OS SCH ×3 (08:27→20:08)
[2023-01-07] MEDS: SODIUM CHLORIDE NASAL 0.65% SPRAY BTL (OCEAN) SCH ×3 (08:27→20:08)
[2023-01-07] MEDS: REMEDY PHYTOPLEX Z-GUARD PASTE 113GM TUBE (FROM STOREROOM PRODUCT) TOP SCH ×3 (08:28→20:08)
[2023-01-07 14:00] VITALS: BP 118/75
[2023-01-07 20:00] VITALS: BP 118/64
[2023-01-07] MEDS: ATORVASTATIN 20 MG TAB PO SCH (20:07)
[2023-01-07] MEDS: CETIRIZINE (ZyrTEC) 10 MG TAB PO SCH (20:07)
[2023-01-07] MEDS: zolPIDEM TARTRATE 5 MG TAB PO SCH (20:07)
[2023-01-07] MEDS: SENNA 8.6 MG TAB (SENOKOT) PO SCH (20:07)
[2023-01-08 06:00] VITALS: BP 126/69
[2023-01-08 06:22] LABS: BASO % 0.4 % (0.0-1.0); EOS # 0.1 10^3/uL (0.0-0.5); EOS % 1.2 % (0.0-3.0); HEMATOCRIT 34.9 % (36.0-47.0); HEMOGLOBIN 11.3 g/dl (12.0-15.5); LYMPH # 1.1 10^3/uL (1.5-5.0); LYMPH % 14.2 % (24.0-44.0); MEAN CORPUSCULAR HEMOGLOBIN 32.8 pg (27.0-33.0); MEAN CORPUSCULAR HGB CONC 32.4 g/dl (32.0-36.5); MEAN CORPUSCULAR VOLUME 101.5 fl (80.0-96.0); MONO # 0.5 10^3/uL (0.0-0.8); MONO % 6.3 % (2.0-8.0); NEUTROPHILS # 5.9 10^3/uL (1.5-8.5); NEUTROPHILS % 77.6 % (36.0-66.0); PLATELET COUNT, AUTOMATED 326 10^3/uL (150-450); RED BLOOD COUNT 3.44 10^6/uL (4.00-5.40); WHITE BLOOD COUNT 7.6 10^3/uL (4.0-10.0)
[2023-01-08 06:52] LABS: BLOOD UREA NITROGEN 8 MG/DL (9-23); CALCIUM LEVEL 9.3 MG/DL (8.3-10.6); CARBON DIOXIDE LEVEL 26 MMOL/L (20-31); CHLORIDE LEVEL 108 MMOL/L (98-107); CREATININE FOR GFR 0.69 MG/DL (0.55-1.30); GLOMERULAR FILTRATION RATE > 60.0 (>39); GLUCOSE, FASTING 110 MG/DL (74-106); POTASSIUM SERUM 4.1 MMOL/L (3.5-5.1); SODIUM LEVEL 142 MMOL/L (136-145)
[2023-01-08] MEDS: COMBIVENT RESPIMAT 100-20MCG INHALER 4GM INH SCH ×3 (08:00→19:51)
[2023-01-08] MEDS: LACRILUBE (AKWA TEARS) OPHTH OINT 3.5GM OS SCH ×3 (08:43→20:06)
[2023-01-08] MEDS: FLUTICASONE PROP 0.05% NASAL SPRAY 16 GM (FLONASE) NARES SCH ×2 (08:43→19:58)
[2023-01-08] MEDS: DOCUSATE SODIUM 100MG CAPSULE PO SCH ×2 (08:44→19:54)
[2023-01-08] MEDS: VENLAFAXINE **XR** 75MG CAPSULE PO SCH (08:45)
[2023-01-08] MEDS: ASPIRIN 81MG CHEW TABLET PO SCH (08:45)
[2023-01-08] MEDS: OMEPRAZOLE 20MG CAP PO SCH (08:45)
[2023-01-08] MEDS: FOLIC ACID 1MG TAB PO SCH (08:45)
[2023-01-08] MEDS: THIAMINE 100 MG TAB PO SCH (08:45)
[2023-01-08] MEDS: TAMSULOSIN 0.4 MG CAP PO SCH ×2 (08:45→20:05)
[2023-01-08] MEDS: MIRALAX *UNIT DOSE* 17GM PACKET PO SCH ×2 (08:46→19:55)
[2023-01-08] MEDS: MECLIZINE 12.5 MG TAB PO SCH ×3 (08:46→20:05)
[2023-01-08] MEDS: guaiFENesin 200 MG TAB PO SCH ×3 (08:46→20:07)
[2023-01-08] MEDS: VENLAFAXINE **XR** 37.5 MG CAPSULE PO SCH (08:46)
[2023-01-08] MEDS: REMEDY PHYTOPLEX Z-GUARD PASTE 113GM TUBE (FROM STOREROOM PRODUCT) TOP SCH ×3 (08:47→20:07)
[2023-01-08] MEDS: SODIUM CHLORIDE NASAL 0.65% SPRAY BTL (OCEAN) SCH ×3 (08:48→19:58)
[2023-01-08] MEDS: POLYVINYL ALCOHOL OPHTH SOLN 15ML (LIQUITEARS) OS SCH ×5 (08:50→18:33)
[2023-01-08 14:00] VITALS: BP 124/76
[2023-01-08] MEDS: AUGMENTIN 875 MG TAB PO SCH ×2 (15:24→21:31)
[2023-01-08] MEDS: LACTOBACILLUS ACIDOPHILUS CAP (BACID) PO SCH (17:45)
[2023-01-08] MEDS: SENNA 8.6 MG TAB (SENOKOT) PO SCH (19:55)
[2023-01-08 20:00] VITALS: BP 129/66
[2023-01-08] MEDS: ATORVASTATIN 20 MG TAB PO SCH (20:04)
[2023-01-08] MEDS: CETIRIZINE (ZyrTEC) 10 MG TAB PO SCH (20:05)
[2023-01-08] MEDS: zolPIDEM TARTRATE 5 MG TAB PO SCH (20:05)
[2023-01-08] MEDS: TERAZOSIN 1 MG CAP PO SCH (20:06)
[2023-01-08] MEDS: OXYMETAZOLINE 0.05% NASAL SPRAY (AFRIN) SCH (20:06)
[2023-01-08] MEDS ORDERED: AUGMENTIN 875 MG TAB PO SCH (21:00)
[2023-01-09] MEDS: POLYVINYL ALCOHOL OPHTH SOLN 15ML (LIQUITEARS) OS SCH ×6 (05:56→20:15)
[2023-01-09 06:00] VITALS: BP 123/67
[2023-01-09] MEDS: COMBIVENT RESPIMAT 100-20MCG INHALER 4GM INH SCH ×3 (07:16→20:01)
[2023-01-09] MEDS: VENLAFAXINE **XR** 37.5 MG CAPSULE PO SCH (07:23)
[2023-01-09] MEDS: DOCUSATE SODIUM 100MG CAPSULE PO SCH ×2 (07:23→20:06)
[2023-01-09] MEDS: VENLAFAXINE **XR** 75MG CAPSULE PO SCH (07:23)
[2023-01-09] MEDS: TAMSULOSIN 0.4 MG CAP PO SCH ×2 (07:24→20:12)
[2023-01-09] MEDS: THIAMINE 100 MG TAB PO SCH (07:25)
[2023-01-09] MEDS: FOLIC ACID 1MG TAB PO SCH (07:25)
[2023-01-09] MEDS: OMEPRAZOLE 20MG CAP PO SCH (07:25)
[2023-01-09] MEDS: ASPIRIN 81MG CHEW TABLET PO SCH (07:26)
[2023-01-09] MEDS: MECLIZINE 12.5 MG TAB PO SCH ×3 (07:26→20:12)
[2023-01-09] MEDS: AUGMENTIN 875 MG TAB PO SCH ×2 (07:27→20:13)
[2023-01-09] MEDS: MIRALAX *UNIT DOSE* 17GM PACKET PO SCH ×2 (07:28→20:06)
[2023-01-09] MEDS: guaiFENesin 200 MG TAB PO SCH ×3 (07:28→20:07)
[2023-01-09] MEDS: LACTOBACILLUS ACIDOPHILUS CAP (BACID) PO SCH ×2 (07:29→17:06)
[2023-01-09] MEDS: OXYMETAZOLINE 0.05% NASAL SPRAY (AFRIN) SCH ×2 (07:30→20:16)
[2023-01-09] MEDS: SODIUM CHLORIDE NASAL 0.65% SPRAY BTL (OCEAN) SCH ×3 (07:31→20:06)
[2023-01-09] MEDS: LACRILUBE (AKWA TEARS) OPHTH OINT 3.5GM OS SCH ×3 (07:31→20:16)
[2023-01-09] MEDS: FLUTICASONE PROP 0.05% NASAL SPRAY 16 GM (FLONASE) NARES SCH ×2 (07:31→20:06)
[2023-01-09] MEDS: REMEDY PHYTOPLEX Z-GUARD PASTE 113GM TUBE (FROM STOREROOM PRODUCT) TOP SCH ×3 (07:32→20:16)
[2023-01-09 14:00] VITALS: BP 130/75
[2023-01-09 20:00] VITALS: BP 128/71
[2023-01-09] MEDS: SENNA 8.6 MG TAB (SENOKOT) PO SCH (20:06)
[2023-01-09] MEDS: zolPIDEM TARTRATE 5 MG TAB PO SCH (20:12)
[2023-01-09] MEDS: ATORVASTATIN 20 MG TAB PO SCH (20:12)
[2023-01-09] MEDS: CETIRIZINE (ZyrTEC) 10 MG TAB PO SCH (20:12)
[2023-01-09] MEDS: TERAZOSIN 1 MG CAP PO SCH (20:15)
[2023-01-10 06:00] VITALS: BP 108/58
[2023-01-10 06:27] LABS: BASO % 0.6 % (0.0-1.0); EOS # 0.1 10^3/uL (0.0-0.5); EOS % 1.6 % (0.0-3.0); HEMATOCRIT 30.5 % (36.0-47.0); LYMPH # 1.1 10^3/uL (1.5-5.0); LYMPH % 21.3 % (24.0-44.0); MEAN CORPUSCULAR HEMOGLOBIN 33.1 pg (27.0-33.0); MEAN CORPUSCULAR HGB CONC 32.8 g/dl (32.0-36.5); MONO # 0.4 10^3/uL (0.0-0.8); MONO % 7.6 % (2.0-8.0); NEUTROPHILS # 3.4 10^3/uL (1.5-8.5); NEUTROPHILS % 68.3 % (36.0-66.0); PLATELET COUNT, AUTOMATED 347 10^3/uL (150-450); RED BLOOD COUNT 3.02 10^6/uL (4.00-5.40)
[2023-01-10] MEDS: POLYVINYL ALCOHOL OPHTH SOLN 15ML (LIQUITEARS) OS SCH ×5 (06:41→19:00)
[2023-01-10 06:53] LABS: BLOOD UREA NITROGEN 8 MG/DL (9-23); CALCIUM LEVEL 8.6 MG/DL (8.3-10.6); CARBON DIOXIDE LEVEL 27 MMOL/L (20-31); CHLORIDE LEVEL 109 MMOL/L (98-107); CREATININE FOR GFR 0.67 MG/DL (0.55-1.30); GLOMERULAR FILTRATION RATE > 60.0 (>39); GLUCOSE, FASTING 106 MG/DL (74-106); POTASSIUM SERUM 4.3 MMOL/L (3.5-5.1); SODIUM LEVEL 141 MMOL/L (136-145)
[2023-01-10] MEDS: COMBIVENT RESPIMAT 100-20MCG INHALER 4GM INH SCH ×3 (07:44→19:34)
[2023-01-10] MEDS: MIRALAX *UNIT DOSE* 17GM PACKET PO SCH ×2 (09:00→21:00)
[2023-01-10] MEDS: LACRILUBE (AKWA TEARS) OPHTH OINT 3.5GM OS SCH ×4 (09:00→20:36)
[2023-01-10] MEDS: FLUTICASONE PROP 0.05% NASAL SPRAY 16 GM (FLONASE) NARES SCH ×2 (09:00→21:00)
[2023-01-10] MEDS: guaiFENesin 200 MG TAB PO SCH ×3 (09:00→21:00)
[2023-01-10] MEDS: AUGMENTIN 875 MG TAB PO SCH ×2 (09:48→20:34)
[2023-01-10] MEDS: VENLAFAXINE **XR** 37.5 MG CAPSULE PO SCH (09:48)
[2023-01-10] MEDS: MECLIZINE 12.5 MG TAB PO SCH ×3 (09:49→20:34)
[2023-01-10] MEDS: OMEPRAZOLE 20MG CAP PO SCH (09:49)
[2023-01-10] MEDS: DOCUSATE SODIUM 100MG CAPSULE PO SCH ×2 (09:50→20:34)
[2023-01-10] MEDS: VENLAFAXINE **XR** 75MG CAPSULE PO SCH (09:50)
[2023-01-10] MEDS: LACTOBACILLUS ACIDOPHILUS CAP (BACID) PO SCH ×2 (09:50→17:44)
[2023-01-10] MEDS: THIAMINE 100 MG TAB PO SCH (09:50)
[2023-01-10] MEDS: TAMSULOSIN 0.4 MG CAP PO SCH (09:50)
[2023-01-10] MEDS: ASPIRIN 81MG CHEW TABLET PO SCH (09:50)
[2023-01-10] MEDS: FOLIC ACID 1MG TAB PO SCH (09:50)
[2023-01-10] MEDS: OXYMETAZOLINE 0.05% NASAL SPRAY (AFRIN) SCH ×2 (09:51→20:36)
[2023-01-10] MEDS: REMEDY PHYTOPLEX Z-GUARD PASTE 113GM TUBE (FROM STOREROOM PRODUCT) TOP SCH ×3 (09:52→21:00)
[2023-01-10] MEDS: SODIUM CHLORIDE NASAL 0.65% SPRAY BTL (OCEAN) SCH ×3 (09:53→21:00)
[2023-01-10 14:00] VITALS: BP 127/63
[2023-01-10 20:00] VITALS: BP 122/70
[2023-01-10] MEDS: zolPIDEM TARTRATE 5 MG TAB PO SCH (20:33)
[2023-01-10] MEDS: CETIRIZINE (ZyrTEC) 10 MG TAB PO SCH (20:33)
[2023-01-10] MEDS: SENNA 8.6 MG TAB (SENOKOT) PO SCH (20:33)
[2023-01-10] MEDS: TERAZOSIN 1 MG CAP PO SCH (20:34)
[2023-01-10] MEDS: ATORVASTATIN 20 MG TAB PO SCH (20:34)
[2023-01-11 06:00] VITALS: BP 109/66
[2023-01-11] MEDS: POLYVINYL ALCOHOL OPHTH SOLN 15ML (LIQUITEARS) OS SCH ×4 (06:07→18:15)
[2023-01-11] MEDS: COMBIVENT RESPIMAT 100-20MCG INHALER 4GM INH SCH ×3 (07:53→19:38)
[2023-01-11] MEDS: MIRALAX *UNIT DOSE* 17GM PACKET PO SCH ×2 (09:00→21:00)
[2023-01-11] MEDS: DOCUSATE SODIUM 100MG CAPSULE PO SCH ×2 (09:02→21:19)
[2023-01-11] MEDS: LACTOBACILLUS ACIDOPHILUS CAP (BACID) PO SCH ×2 (09:02→18:14)
[2023-01-11] MEDS: FOLIC ACID 1MG TAB PO SCH (09:02)
[2023-01-11] MEDS: MECLIZINE 12.5 MG TAB PO SCH ×3 (09:02→21:20)
[2023-01-11] MEDS: AUGMENTIN 875 MG TAB PO SCH ×2 (09:02→21:20)
[2023-01-11] MEDS: OMEPRAZOLE 20MG CAP PO SCH (09:03)
[2023-01-11] MEDS: guaiFENesin 200 MG TAB PO SCH ×4 (09:03→21:00)
[2023-01-11] MEDS: THIAMINE 100 MG TAB PO SCH (09:03)
[2023-01-11] MEDS: ASPIRIN 81MG CHEW TABLET PO SCH (09:03)
[2023-01-11] MEDS: VENLAFAXINE **XR** 37.5 MG CAPSULE PO SCH (09:03)
[2023-01-11] MEDS: LACRILUBE (AKWA TEARS) OPHTH OINT 3.5GM OS SCH ×3 (09:04→21:18)
[2023-01-11] MEDS: VENLAFAXINE **XR** 75MG CAPSULE PO SCH (09:04)
[2023-01-11] MEDS: FLUTICASONE PROP 0.05% NASAL SPRAY 16 GM (FLONASE) NARES SCH ×2 (09:04→21:00)
[2023-01-11] MEDS: SODIUM CHLORIDE NASAL 0.65% SPRAY BTL (OCEAN) SCH ×3 (09:04→21:20)
[2023-01-11] MEDS: OXYMETAZOLINE 0.05% NASAL SPRAY (AFRIN) SCH (09:05)
[2023-01-11] MEDS: REMEDY PHYTOPLEX Z-GUARD PASTE 113GM TUBE (FROM STOREROOM PRODUCT) TOP SCH ×3 (09:06→21:00)
[2023-01-11 14:00] VITALS: BP 112/63
[2023-01-11 20:00] VITALS: BP 120/69
[2023-01-11] MEDS: SENNA 8.6 MG TAB (SENOKOT) PO SCH (21:00)
[2023-01-11] MEDS: ATORVASTATIN 20 MG TAB PO SCH (21:19)
[2023-01-11] MEDS: zolPIDEM TARTRATE 5 MG TAB PO SCH (21:19)
[2023-01-11] MEDS: TERAZOSIN 1 MG CAP PO SCH (21:19)
[2023-01-11] MEDS: CETIRIZINE (ZyrTEC) 10 MG TAB PO SCH (21:20)
[2023-01-12 06:00] VITALS: BP 116/72
[2023-01-12] MEDS: POLYVINYL ALCOHOL OPHTH SOLN 15ML (LIQUITEARS) OS SCH ×5 (07:05→18:14)
[2023-01-12] MEDS: COMBIVENT RESPIMAT 100-20MCG INHALER 4GM INH SCH ×3 (07:25→20:08)
[2023-01-12] MEDS: LACTOBACILLUS ACIDOPHILUS CAP (BACID) PO SCH ×2 (08:00→17:18)
[2023-01-12] MEDS: guaiFENesin 200 MG TAB PO SCH ×3 (09:00→20:58)
[2023-01-12] MEDS: MIRALAX *UNIT DOSE* 17GM PACKET PO SCH ×2 (09:00→20:58)
[2023-01-12] MEDS: LACRILUBE (AKWA TEARS) OPHTH OINT 3.5GM OS SCH ×3 (09:46→20:57)
[2023-01-12] MEDS: FLUTICASONE PROP 0.05% NASAL SPRAY 16 GM (FLONASE) NARES SCH ×2 (09:46→20:57)
[2023-01-12] MEDS: SODIUM CHLORIDE NASAL 0.65% SPRAY BTL (OCEAN) SCH ×3 (09:46→20:57)
[2023-01-12] MEDS: REMEDY PHYTOPLEX Z-GUARD PASTE 113GM TUBE (FROM STOREROOM PRODUCT) TOP SCH ×3 (09:46→20:57)
[2023-01-12] MEDS: MECLIZINE 12.5 MG TAB PO SCH ×3 (09:59→20:56)
[2023-01-12] MEDS: AUGMENTIN 875 MG TAB PO SCH ×2 (09:59→20:56)
[2023-01-12] MEDS: FOLIC ACID 1MG TAB PO SCH (09:59)
[2023-01-12] MEDS: ASPIRIN 81MG CHEW TABLET PO SCH (09:59)
[2023-01-12] MEDS: VENLAFAXINE **XR** 37.5 MG CAPSULE PO SCH (09:59)
[2023-01-12] MEDS: DOCUSATE SODIUM 100MG CAPSULE PO SCH ×2 (09:59→20:56)
[2023-01-12] MEDS: VENLAFAXINE **XR** 75MG CAPSULE PO SCH (09:59)
[2023-01-12] MEDS: THIAMINE 100 MG TAB PO SCH (09:59)
[2023-01-12] MEDS: OMEPRAZOLE 20MG CAP PO SCH (10:00)
[2023-01-12 20:00] VITALS: BP 122/67
[2023-01-12] MEDS: ATORVASTATIN 20 MG TAB PO SCH (20:56)
[2023-01-12 20:57] VITALS: BP 122/67
[2023-01-12] MEDS: zolPIDEM TARTRATE 5 MG TAB PO SCH (20:57)
[2023-01-12] MEDS: CETIRIZINE (ZyrTEC) 10 MG TAB PO SCH (20:57)
[2023-01-12] MEDS: TERAZOSIN 1 MG CAP PO SCH (20:57)
[2023-01-12] MEDS: SENNA 8.6 MG TAB (SENOKOT) PO SCH (20:58)
[2023-01-13 06:00] VITALS: BP 116/73
[2023-01-13 06:43] LABS: BASO % 0.4 % (0.0-1.0); EOS # 0.1 10^3/uL (0.0-0.5); HEMATOCRIT 31.2 % (36.0-47.0); HEMOGLOBIN 10.1 g/dl (12.0-15.5); LYMPH % 14.3 % (24.0-44.0); MEAN CORPUSCULAR HEMOGLOBIN 32.7 pg (27.0-33.0); MEAN CORPUSCULAR HGB CONC 32.4 g/dl (32.0-36.5); MONO # 0.5 10^3/uL (0.0-0.8); MONO % 6.7 % (2.0-8.0); NEUTROPHILS # 5.6 10^3/uL (1.5-8.5); PLATELET COUNT, AUTOMATED 343 10^3/uL (150-450); RED BLOOD COUNT 3.09 10^6/uL (4.00-5.40); WHITE BLOOD COUNT 7.2 10^3/uL (4.0-10.0)
[2023-01-13 07:11] LABS: BLOOD UREA NITROGEN 8 MG/DL (9-23); CALCIUM LEVEL 8.5 MG/DL (8.3-10.6); CARBON DIOXIDE LEVEL 26 MMOL/L (20-31); CHLORIDE LEVEL 108 MMOL/L (98-107); CREATININE FOR GFR 0.69 MG/DL (0.55-1.30); GLOMERULAR FILTRATION RATE > 60.0 (>39); GLUCOSE, FASTING 100 MG/DL (74-106); POTASSIUM SERUM 4.3 MMOL/L (3.5-5.1); SODIUM LEVEL 141 MMOL/L (136-145)
[2023-01-13] MEDS: COMBIVENT RESPIMAT 100-20MCG INHALER 4GM INH SCH ×2 (07:35→13:45)
[2023-01-13] MEDS: POLYVINYL ALCOHOL OPHTH SOLN 15ML (LIQUITEARS) OS SCH ×3 (07:41→12:11)
[2023-01-13] MEDS: AUGMENTIN 875 MG TAB PO SCH (08:28)
[2023-01-13] MEDS: MECLIZINE 12.5 MG TAB PO SCH (08:28)
[2023-01-13] MEDS: ASPIRIN 81MG CHEW TABLET PO SCH (08:28)
[2023-01-13] MEDS: VENLAFAXINE **XR** 37.5 MG CAPSULE PO SCH (08:28)
[2023-01-13] MEDS: OMEPRAZOLE 20MG CAP PO SCH (08:28)
[2023-01-13] MEDS: DOCUSATE SODIUM 100MG CAPSULE PO SCH (08:29)
[2023-01-13] MEDS: LACTOBACILLUS ACIDOPHILUS CAP (BACID) PO SCH (08:29)
[2023-01-13] MEDS: guaiFENesin 200 MG TAB PO SCH (08:29)
[2023-01-13] MEDS: VENLAFAXINE **XR** 75MG CAPSULE PO SCH (08:29)
[2023-01-13] MEDS: FOLIC ACID 1MG TAB PO SCH (08:29)
[2023-01-13] MEDS: THIAMINE 100 MG TAB PO SCH (08:29)
[2023-01-13] MEDS: MIRALAX *UNIT DOSE* 17GM PACKET PO SCH (08:29)
[2023-01-13] MEDS: FLUTICASONE PROP 0.05% NASAL SPRAY 16 GM (FLONASE) NARES SCH (08:30)
[2023-01-13] MEDS: LACRILUBE (AKWA TEARS) OPHTH OINT 3.5GM OS SCH (08:31)
[2023-01-13] MEDS: REMEDY PHYTOPLEX Z-GUARD PASTE 113GM TUBE (FROM STOREROOM PRODUCT) TOP SCH (08:31)
[2023-01-13] MEDS: SODIUM CHLORIDE NASAL 0.65% SPRAY BTL (OCEAN) SCH (08:32)
[2023-01-13] MEDS ORDERED: AMBI10TA PO (08:56)
[2023-01-13] MEDS ORDERED: ATOR80TA59 PO (08:56)
[2023-01-13] MEDS ORDERED: OMEP40CA4 PO (08:56)
[2023-01-13] MEDS ORDERED: ASPI81CH8 PO (08:56)
[2023-01-13] MEDS ORDERED: THIA100TA PO (09:01)
[2023-01-13] MEDS ORDERED: RISATAB3 PO (09:01)
[2023-01-13] MEDS ORDERED: FOLI1TAB11 PO (09:01)
[2023-01-13] MEDS ORDERED: AMOX875T2 PO (09:01)
[2023-01-13] MEDS ORDERED: MECL-136 PO (09:01)
== END 2023-01-13 14:00 | disposition home or self-care (01) | DRG 57 ==
LOC: M PM&R 19:00
PROVIDERS: ADMIT Physical Medicine & Rehabilitation; ATTEND Physical Medicine & Rehabilitation
DX: I69.354 Hemiplegia and hemiparesis following cerebral infarction affecting left non-dominant side (principal); I50.32 Chronic diastolic (congestive) heart failure; I69.391 Dysphagia following cerebral infarction; R13.10 Dysphagia, unspecified; R42 Dizziness and giddiness; R26.89 Other abnormalities of gait and mobility; J43.9 Emphysema, unspecified; N32.9 Bladder disorder, unspecified; D64.9 Anemia, unspecified; M47.816 Spondylosis without myelopathy or radiculopathy, lumbar region; F17.200 Nicotine dependence, unspecified, uncomplicated; I16.0 Hypertensive urgency; K21.9 Gastro-esophageal reflux disease without esophagitis; Z85.820 Personal history of malignant melanoma of skin; Z85.828 Personal history of other malignant neoplasm of skin; F41.9 Anxiety disorder, unspecified; Z74.09 Other reduced mobility; Z74.1 Need for assistance with personal care; K59.00 Constipation, unspecified; R33.9 Retention of urine, unspecified; E78.5 Hyperlipidemia, unspecified; L20.9 Atopic dermatitis, unspecified; I25.10 Atherosclerotic heart disease of native coronary artery without angina pectoris; J30.9 Allergic rhinitis, unspecified; G47.00 Insomnia, unspecified; R09.81 Nasal congestion; E04.1 Nontoxic single thyroid nodule; H93.12 Tinnitus, left ear; H02.402 Unspecified ptosis of left eyelid; Z79.82 Long term (current) use of aspirin; Z79.899 Other long term (current) drug therapy; Z88.8 Allergy status to other drugs, medicaments and biological substances; Z90.79 Acquired absence of other genital organ(s)

== ENCOUNTER 2023-02-03 13:54 | Outpatient (RCR) | payer MEDICARE, OTHER ==
[~2023-02-03 13:54] MED LIST changes: +AMOX875T2 PO; +ATOR80TA59 PO; +FOLI1TAB11 PO; +RISATAB3 PO; +THIA100TA PO
== END 2023-02-07 ==
LOC: M ST 13:54
PROVIDERS: ATTEND Physical Medicine & Rehabilitation
DX: I63.219 Cerebral infarction due to unspecified occlusion or stenosis of unspecified vertebral artery (principal); R26.9 Unspecified abnormalities of gait and mobility; R47.1 Dysarthria and anarthria

== ENCOUNTER → 2023-02-07 | Outpatient (CLI) | payer MEDICARE, OTHER | LOC: M WHC 09:47 | PROVIDERS: ATTEND Nurse Practitioner Family | DX: E04.2 Nontoxic multinodular goiter (principal) ==

== ENCOUNTER 2023-03-05 12:15 | Outpatient (RCR) | payer MEDICARE, OTHER | END 2023-03-09 | LOC: M PT 12:15 | PROVIDERS: ATTEND Physical Medicine & Rehabilitation | DX: I69.322 Dysarthria following cerebral infarction (principal); I69.398 Other sequelae of cerebral infarction; R26.9 Unspecified abnormalities of gait and mobility ==

== ENCOUNTER 2023-03-26 15:57 | Emergency (ER) | payer MEDICARE, OTHER ==
[~2023-03-26] VITALS: Ht 165.1 cm; Wt 72.0 kg
[2023-03-26 16:42] LABS: BASO % 0.5 % (0.0-1.0); EOS # 0.1 10^3/uL (0.0-0.5); EOS % 1.5 % (0.0-3.0); HEMATOCRIT 34.9 % (36.0-47.0); HEMOGLOBIN 11.6 g/dl (12.0-15.5); LYMPH # 1.4 10^3/uL (1.5-5.0); LYMPH % 23.5 % (24.0-44.0); MEAN CORPUSCULAR HEMOGLOBIN 30.8 pg (27.0-33.0); MEAN CORPUSCULAR HGB CONC 33.2 g/dl (32.0-36.5); MEAN CORPUSCULAR VOLUME 92.6 fl (80.0-96.0); MONO # 0.4 10^3/uL (0.0-0.8); NEUTROPHILS % 67.3 % (36.0-66.0); PLATELET COUNT, AUTOMATED 278 10^3/uL (150-450); RED BLOOD COUNT 3.77 10^6/uL (4.00-5.40); WHITE BLOOD COUNT 5.9 10^3/uL (4.0-10.0)
[2023-03-26 17:00] VITALS: BP 178/88
[2023-03-26 17:16] LABS: ALBUMIN 4.3 G/DL (3.2-5.2); ALKALINE PHOSPHATASE 71 U/L (46-116); ALT/SGPT 28 U/L (7.0-40); AST/SGOT 24 U/L (<34); BILIRUBIN,DIRECT 0.3 MG/DL (<0.4); BLOOD UREA NITROGEN 13 MG/DL (9-23); CALCIUM LEVEL 9.7 MG/DL (8.3-10.6); CARBON DIOXIDE LEVEL 25 MMOL/L (20-31); CHLORIDE LEVEL 108 MMOL/L (98-107); CREATININE FOR GFR 0.77 MG/DL (0.55-1.30); GLOMERULAR FILTRATION RATE > 60.0 (>39); GLUCOSE, FASTING 97 MG/DL (74-106); POTASSIUM SERUM 4.1 MMOL/L (3.5-5.1); SODIUM LEVEL 140 MMOL/L (136-145); TOTAL PROTEIN 6.9 G/DL (5.7-8.2)
[2023-03-26 17:17] LABS: INR 0.95; PROTHROMBIN TIME 12.9 SECONDS (12.5-14.5)
== END 2023-03-26 18:04 | disposition home or self-care (01) ==
LOC: M ED 15:57
DX: I10 Essential (primary) hypertension (principal); F41.9 Anxiety disorder, unspecified; E78.5 Hyperlipidemia, unspecified; Z86.73 Personal history of transient ischemic attack (TIA), and cerebral infarction without residual deficits; Z88.8 Allergy status to other drugs, medicaments and biological substances; Z79.82 Long term (current) use of aspirin; Z79.899 Other long term (current) drug therapy

== ENCOUNTER 2023-04-08 12:46 | Outpatient (RCR) | payer MEDICARE, OTHER | END 2023-04-09 | LOC: M PT 12:46 | PROVIDERS: ATTEND Physical Medicine & Rehabilitation | DX: R26.9 Unspecified abnormalities of gait and mobility (principal); I69.322 Dysarthria following cerebral infarction ==

== ENCOUNTER 2023-05-07 12:49 | Outpatient (RCR) | payer MEDICARE, OTHER | END 2023-05-09 | LOC: M PT 12:49 | PROVIDERS: ATTEND Physical Medicine & Rehabilitation | DX: I69.322 Dysarthria following cerebral infarction (principal); R26.9 Unspecified abnormalities of gait and mobility; M54.50 Low back pain, unspecified ==

== ENCOUNTER 2023-06-04 12:15 | Outpatient (RCR) | payer MEDICARE, OTHER | END 2023-06-09 | LOC: M PT 12:15 | PROVIDERS: ATTEND Family Medicine | DX: M54.50 Low back pain, unspecified (principal) ==

== ENCOUNTER 2023-06-16 12:05 | Outpatient (RCR) | payer MEDICARE, OTHER | END 2023-07-10 | LOC: M PT 12:05 | PROVIDERS: ATTEND Family Medicine | DX: M54.50 Low back pain, unspecified (principal) ==

== ENCOUNTER → 2024-05-28 | Outpatient (CLI) | payer MEDICARE, OTHER ==
[~2024-05-28] MED LIST changes: -MIRA1POW3 PO; +MIRA33506 PO
[2024-05-28 14:59] LABS: BASO % 0.6 % (0.0-1.0); EOS # 0.2 10^3/uL (0.0-0.5); EOS % 2.6 % (0.0-3.0); HEMATOCRIT 36.1 % (36.0-47.0); HEMOGLOBIN 11.9 g/dl (12.0-15.5); LYMPH # 1.3 10^3/uL (1.5-5.0); LYMPH % 21.1 % (24.0-44.0); MEAN CORPUSCULAR HEMOGLOBIN 32.2 pg (27.0-33.0); MEAN CORPUSCULAR VOLUME 97.6 fl (80.0-96.0); MONO # 0.4 10^3/uL (0.0-0.8); MONO % 6.4 % (2.0-8.0); NEUTROPHILS # 4.3 10^3/uL (1.5-8.5); NEUTROPHILS % 69.1 % (36.0-66.0); PLATELET COUNT, AUTOMATED 301 10^3/uL (150-450); WHITE BLOOD COUNT 6.3 10^3/uL (4.0-10.0)
[2024-05-28 15:18] LABS: APPEARANCE, URINE HAZY (CLEAR); BACTERIA, URINE AUTO NEGATIVE (NEGATIVE); BILIRUBIN, URINE AUTO NEGATIVE (NEGATIVE); BLOOD, URINE BLOOD NEGATIVE (NEGATIVE); COLOR, URINE YELLOW (YELLOW); GLUCOSE, URINE (UA) AUTO NEGATIVE (NEGATIVE); KETONE, URINE AUTO NEGATIVE (NEGATIVE); LEUKOCYTE ESTERASE, URINE AUTO TRACE (NEGATIVE); NITRITE, URINE AUTO NEGATIVE (NEGATIVE); PROTEIN, URINE AUTO NEGATIVE (NEGATIVE); RBC, URINE AUTO 2 /HPF (0-3); SPECIFIC GRAVITY URINE AUTO 1.016 (1.002-1.035); SQUAMOUS EPITHELIAL CELL UR AU 1 /HPF (0-6); UROBILINOGEN, URINE AUTO 0.2 mg/dL (0.0-2.0); WBC, URINE AUTO 3 /HPF (0-3)
[2024-05-28 15:31] LABS: ALBUMIN 4.1 G/DL (3.2-5.2); ALKALINE PHOSPHATASE 88 U/L (46-116); ALT/SGPT 27 U/L (7.0-40); AST/SGOT 15 U/L (<34); BILIRUBIN,TOTAL 0.9 MG/DL (0.3-1.2); BLOOD UREA NITROGEN 15 MG/DL (9-23); CALCIUM LEVEL 10.1 MG/DL (8.3-10.6); CARBON DIOXIDE LEVEL 27 MMOL/L (20-31); CHLORIDE LEVEL 108 MMOL/L (98-107); CREATININE FOR GFR 0.69 MG/DL (0.55-1.30); GLOMERULAR FILTRATION RATE > 60.0 (>39); GLUCOSE, FASTING 95 MG/DL (74-106); POTASSIUM SERUM 4.1 MMOL/L (3.5-5.1); SODIUM LEVEL 139 MMOL/L (136-145); TOTAL PROTEIN 7.1 G/DL (5.7-8.2)
== END ==
LOC: M LAB 14:04
PROVIDERS: ATTEND Registered Nurse
DX: Z01.818 Encounter for other preprocedural examination (principal); Z79.899 Other long term (current) drug therapy